=== PATIENT | female | born 1995 | race Caucasian/White ===

== ENCOUNTER 2019-11-29 13:15 | Inpatient (IN) | payer OTHER, MEDICAID, SELFPAY ==
--- NOTE | 2019-11-29 13:51 | DI.US.S_ITS ---
PROCEDURE: US OB LIMITED INDICATIONS: VAGINAL BLEEDING OUTSIDE/PRIOR DATING DATA: Last menstrual period (LMP): Unknown. LMP-based estimated date of delivery (ANGELINE): Unknown. First dating scan (date and location): Unknown. Estimated date of delivery (ANGELINE) from first dating scan: Given as 03/05/20. TECHNIQUE: Real-time scanning was performed of the fetus, with image documentation. Endovaginal scanning: Performed for better visualization of the cervix COMPARISON: None. FINDINGS: A single live intrauterine gestation is present. Presentation: Vertex. Placenta: Placental position fundal/inferior, without previa. Amniotic fluid index: 21 cm, normal range is 5-24 cm. heart rate: 141 beats per minute. Maternal cervical canal: The cervix is open, dilatation of nearly 3 cm. Mucosal portions of the cervix measures 4 mm. There is a 2 cm solid-appearing, hyperechoic soft tissue component along the posterior aspect of cervix. IMPRESSION: The cervix is largely open, with the closed portion measuring only 4 mm. The cervical lumen demonstrates amniotic fluid, yet there is a more solid portion seen posteriorly, which may relate to hemorrhage. Note: Concordant preliminary findings given by the deputy city clerk upon the completion of the examination to Dr. Maldonado at 3:20 PM on the day of dictation. Dictated by: Carlos Magaña M.D. on 11/29/2019 at 14:34 Approved by: Carlos Magaña M.D. on 11/29/2019 at 14:38
[2019-11-29 14:19] LABS: Appearance Urine UA SL CLOUDY; Bilirubin Urine UA NEGATIVE (NEGATIVE); Color Urine UA YELLOW; Glucose Urine UA NEGATIVE (Negative); Ketones Urine UA NEGATIVE (NEGATIVE); Leukocyte Esterase Urine UA 1+ (NEGATIVE); Nitrite Urine UA NEGATIVE (Negative); Occult Blood Urine UA 2+ (Negative); Protein Urine UA NEGATIVE (Negative); Specific Gravity Urine UA <=1.005 (1.000-1.035); Urobilinogen Urine UA 0.2 E.U./dL (0.2)
[2019-11-29 14:21] LABS: pH Urine UA 6.5 (4.5-8.0)
[2019-11-29 14:28] LABS: Bacteria Urine Occasional (0-1); Culture Indicated Urine Specimen Cultured; RBC Urine 5-10/HPF (0-5/HPF); Squamous Epithelial Cell Urine 1-5 /HPF (0-5/HPF); Transitional Epi Cells Urine 0-1/HPF (0-5/HPF); WBC Urine 5-10/HPF (0-5/HPF)
[2019-11-29] MEDS: NIFEdipine 10 MG CAPSULE PO (15:55)
[2019-11-29] MEDS: LACTATED RINGERS 1,000 ML 100 ML IV (15:59)
--- NOTE | 2019-11-29 16:06 | PM.OBHP.1 ---
OB HPI Date/Time Date of admission: 11/29/19 Date Patient Seen: 11/29/19 Time Patient Seen: 15:35 History of Present Condition Chief complaint: 26wks , bleeding : 1 Para: 0 Estimated Date of Delivery: 03/05/20 Estimated Gestational Age (weeks): 26w1d Narrative: Irasema Meyer is a 23 year old at 26 weeks and 1 day gestation by LMP. She came to the center today with concerns of pinkish discharge and a gush of fluid at 10 a.m. this morning. She has not had further leaking or bleeding however has also been cramping since approximately 6:00 p.m. last night. She lives in [place] and receives obstetric care in [place] however visits her who is in the [facility] in [place] on the weekends. reportedly has been uncomplicated with normal labs and ultrasounds. She had an echocardiogram this due to syncopal episodes and was found to have a small pericardial effusion. She apparently was seen by Cardiology and no further workup recommended. She takes Fiorinal for migraines. labs below Patient reports she just had her 1 hour GTT this week which was normal. She also had COVID-19 testing done which was negative. History of Present care: good care and initiated at week # (6) Dating criteria: LMP confirmed by 1st trimester US Ultrasounds: normal mid trimester US Obstetrical complications: labor Medical complications: none Preadmission Labs Blood type: A (+) positive -: GBS status: unknown (Pending), HBsAG: negative, HIV: negative and RPR/VDLR: negative -: Chlamydia screen: not detected and Gonorrhea screen: not detected -: Rubella: not immune HCT: 40.6 Quad screen: Normal Evaluation Evaluation Baseline heart rate: 120 Variability: Moderate (11-25) monitor accelerations: Present monitor decelerations: Absent Contraction Frequency (minutes): 10 Uterine Contraction Intensity: Mild Category of Tracing: I Cervical dilation (cm): 3 Cervical effacement (%): 80 station: -3 Laboratory results: Laboratory Tests 11/29/19 14:00 Urine Color Yellow Urine Appearance Sl cloudy Urine pH 6.5 Ur Specific Hickman <=1.005 Urine Protein Negative Urine Glucose (UA) Negative Urine Ketones Negative Urine Occult Blood 2+ H Urine Nitrate Negative Urine Bilirubin Negative Urine Urobilinogen 0.2 Ur Leukocyte Esterase 1+ H Urine RBC 5-10/hpf H Urine WBC 5-10/hpf H Ur Squamous Epith Cells 1-5 /hpf Ur Transition Epith Cell 0-1/hpf Urine Bacteria Occasional (0-1) Ur Culture Indicated? Specimen cultured Non-invasive Membranes Rupture Test: negative [facility] Medical History (Updated 11/29/19 @ 16:55 by Sravani Maldonado DO) Migraines (Acute) Social History (Updated 11/29/19 @ 16:55 by Sravani Maldonado DO) marital status: Smoking Status: Never smoker substance use type: does not use Meds Home Medications and Allergies Home Medications Medication Instructions Recorded Confirmed Type No Known Home Medications 11/29/19 11/29/19 History [id number]-[id number] cap 11/29/19 History Allergies Allergy/AdvReac Type Severity Reaction Status Date / Time amoxicillin Allergy Verified 11/29/19 14:17 Review of Systems Review of Systems ROS: Yes All systems reviewed with the patient and are negative except as otherwise documented Exam Vital Signs (past 8 hours): Temperature 36.9? blood pressure 117/68 pulse 90 Const General: healthy appearing and comfortable [facility] Head: normal to inspection Ears: hearing grossly normal bilaterally Nose: external nose normal Face and sinus: normal facial exam Mouth: oral mucosae normal Eyes General: appearance normal, both eyes and all related structures Neck Neck: normal visual inspection Resp Effort & Inspection: normal respiratory effort Auscultation: clear to auscultation bilaterally Cardio Rate: regular rate Rhythm: regular rhythm Heart Sounds: no murmurs GI Other: Gravid External Female Exam: normal external appearance Manual OB Exam: dilated 3, effaced 75%, station high and other (Bulging bag) Presentation: vertex Back/Spine/Pelvis Back: normal to inspection Skin General: no rashes or lesions noted Extrem General: normal to inspection and no pedal edema Objective Labs Labs: Laboratory Results - last 24 hr 11/29/19 14:00 Urine Color Yellow Urine Appearance Sl cloudy Urine pH 6.5 Ur Specific Hickman <=1.005 Urine Protein Negative Urine Glucose (UA) Negative Urine Ketones Negative Urine Occult Blood 2+ H Urine Nitrate Negative Urine Bilirubin Negative Urine Urobilinogen 0.2 Ur Leukocyte Esterase 1+ H Urine RBC 5-10/hpf H Urine WBC 5-10/hpf H Ur Squamous Epith Cells 1-5 /hpf Ur Transition Epith Cell 0-1/hpf Urine Bacteria Occasional (0-1) Ur Culture Indicated? Specimen cultured Assessment and Plan Assessment and Plan Assessment and Plan narrative: Patient is a 23-year-old at 26 weeks and 1 day gestation in labor. She is dilated to at least 3 cm with a bulging bag. Fetus is vertex. GBS pending. heart tones category 1. Patient has been given magnesium, betamethasone and clindamycin for GBS prophylaxis due to penicillin allergy. Unable to complete rapid COVID-19 testing prior to discharge. Spoke with Dr. Bowman at the [facility] who accepted patient for transfer. Patient will be transported via helicopter.
[2019-11-29] MEDS: MAGNESIUM SULFATE 4 GM/100 ML PIGGYBACK IV (16:18)
[2019-11-29] MEDS: BETAMETHASONE 30 MG/5 ML MDV 12 MG IM (16:36)
[2019-11-29] MEDS: CEFAZOLIN 2 GM/100 ML FROZ.PIGGY IV (16:43)
[2019-11-29 17:08] LABS: Add Manual Diff / Slide Review NO; Basophils Absolute Auto 100 /uL (0-100); Basophils Percent Auto 0.4 % (0-2); Eosinophils Absolute Auto 200 /uL (0-450); Eosinophils Percent Auto 1.1 % (2-4); Hematocrit 41.2 % (36-46); Hemoglobin 14.3 g/dL (12.0-16.0); Lymphocytes Absolute Auto 1800 /uL (1100-4500); Lymphocytes Percent Auto 13.1 % (25-40); Mean Corpuscular HGB Conc 34.6 % (30-36); Mean Corpuscular Volume 92.4 fL (80-100); Monocytes Absolute Auto 600 /uL (0-900); Monocytes Percent Auto 4.6 % (3-14); Neutrophils Absolute Auto 11300 /uL (1500-7000); Neutrophils Percent Auto 80.8 % (50-75); Platelet Count 237 X10^3/uL (150-400); Red Blood Cell Count 4.46 X10^6/uL (4.0-5.2); Red Cell Distribution Width 13.5 % (11.6-14.8)
[2019-11-29] MEDS: MAGNESIUM SULFATE 20 GM/500 ML IV.SOLN IV (17:24)
[2019-11-29 18:21] VITALS: BP 117/68; PULSE 90; RESP 18; TEMP 36.9
[2019-11-29 19:18] LABS: Strep Grp B PCR NEG for Grp B Strep
== END 2019-11-29 17:37 | disposition short-term general hospital (02) | DRG 832 ==
PROVIDERS: Admitting Provider Family Medicine; Referring Provider Family Medicine; Visit Provider Family Medicine
DX: O46.92 Antepartum hemorrhage, unspecified, second trimester (principal); I31.3 Pericardial effusion (noninflammatory); Z3A.26 26 weeks gestation of pregnancy; G43.909 Migraine, unspecified, not intractable, without status migrainosus
CPT/HCPCS: 59025; 76815; 76830; 81001; 84112; 85025; 86850; 86900; 86901; 87086; 87653; 96360; 96372; 99234; G0378; G0379; J0690; J0702; J3475